=== PATIENT | female | born 2005 ===

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

== ENCOUNTER → 2023-02-20 | Outpatient (CLI) | payer OTHER | LOC: LAB 13:44 → LAB SHORT 13:44 | DX: N39.0 Urinary tract infection, site not specified (principal) | CPT/HCPCS: 87077; 87086; 87186 ==